=== PATIENT | female | born 1970 | race Two or more races ===

== ENCOUNTER 2020-04-05 19:09 | Emergency (ER) | payer OTHER ==
[~2020-04-05] VITALS: Ht 152.4 cm; Wt 68.3 kg
--- NOTE | 2020-04-05 19:36 | NUR ---
Pt bib ems from [facility] for increased swelling and increased urinary frequency. Pt reports she feels her legs are the most swollen, pt reports in the past years her swelling would resolve and improve but that has now not occured. Pt reports no chest pain but has pain with cough. Pt does not have fever or sob. Pt connected to monitors and ua sent to lab. call light in reach.
[2020-04-05 19:56] LABS: BASOPHILS # (AUTO) 0.02 x10^3/uL (0-0.1); BASOPHILS % (AUTO) 0 % (0-1); EOSINOPHILS # (AUTO) 0.01 x10^3/uL (0-0.4); EOSINOPHILS % (AUTO) 0 % (1-7); LYMPHOCYTES # (AUTO) 1.39 x10^3/uL (1-3.4); LYMPHOCYTES % (AUTO) 19 % (22-44); MD NO; MEAN CORPUSCULAR HEMOGLOBIN 32.1 pg (27.0-34.8); MEAN CORPUSCULAR HGB CONC 33.8 g/dL (32.4-35.8); MEAN CORPUSCULAR VOLUME 95.1 fL (80-100); MONOCYTES # (AUTO) 0.38 x10^3/uL (0.2-0.8); MONOCYTES % (AUTO) 5 % (2-9); NEUTROPHILS % (AUTO) 75 % (42-75); PLATELET COUNT 254 x10^3/uL (130-400); RED BLOOD COUNT 4.62 x10^6/uL (3.82-5.3)
[2020-04-05 20:06] LABS: ALBUMIN 4.4 g/dL (3.4-5.0); ANION GAP 5 mmol/L (5-15); CALCIUM 9.5 mg/dL (8.5-10.1); CHLORIDE 108 mmol/L (98-107)
[2020-04-05 20:11] LABS: CREATININE 0.81 mg/dL (0.55-1.02); TROPONIN I < 0.015 ng/mL (0.000-0.045)
[2020-04-05 20:35] LABS: MICROSCOPIC INDICATED
--- NOTE | 2020-04-05 20:35 | NUR ---
Report to Danna VILLA
--- NOTE | 2020-04-05 20:45 | NUR ---
REPORT RECEIVED AND CARE ASSUMED. PT RESTING COMFORTABLY. WARM BLANKET GIVEN. NO FURTHER NEEDS OR COMPLAINTS NOTED. CALL LIGHT IN REACH. AWAITING LAB TESTS.
[2020-04-05 22:02] VITALS: BP 140/59
== END 2020-04-05 22:05 | disposition home or self-care (01) ==
LOC: ED 21:29
DX: N30.00 Acute cystitis without hematuria (principal); R60.0 Localized edema; R10.9 Unspecified abdominal pain; R05 Cough; R07.89 Other chest pain; M54.9 Dorsalgia, unspecified; R94.31 Abnormal electrocardiogram [ECG] [EKG]
CPT/HCPCS: 36415; 71045; 80048; 81001; 82040; 83880; 84484; 85025; 87086; 93005; 99285

== ENCOUNTER 2020-04-13 09:28 | Emergency (ER) | payer OTHER ==
[~2020-04-13] VITALS: Ht 157.5 cm; Wt 73.8 kg
[2020-04-13 09:30] VITALS: BP 142/72
[2020-04-13 10:28] LABS: BASOPHILS # (AUTO) 0.01 x10^3/uL (0-0.1); BASOPHILS % (AUTO) 0 % (0-1); EOSINOPHILS # (AUTO) 0.08 x10^3/uL (0-0.4); EOSINOPHILS % (AUTO) 1 % (1-7); LYMPHOCYTES # (AUTO) 2.14 x10^3/uL (1-3.4); LYMPHOCYTES % (AUTO) 37 % (22-44); MD NO; MEAN CORPUSCULAR HEMOGLOBIN 32.6 pg (27.0-34.8); MEAN CORPUSCULAR VOLUME 95.9 fL (80-100); MEAN PLATELET VOLUME 8.7 fL (7.4-10.4); MONOCYTES % (AUTO) 7 % (2-9); NEUTROPHILS # (AUTO) 3.23 x10^3/uL (1.8-6.8); NEUTROPHILS % (AUTO) 55 % (42-75); PLATELET COUNT 242 x10^3/uL (130-400); RED CELL DISTRIBUTION WIDTH 12.9 % (9.6-15.2)
[2020-04-13 10:45] LABS: ALBUMIN 4.2 g/dL (3.4-5.0); ANION GAP 7 mmol/L (5-15); CALCIUM 9.3 mg/dL (8.5-10.1); CHLORIDE 110 mmol/L (98-107)
[2020-04-13 10:49] LABS: ALANINE AMINOTRANSFERASE 24 U/L (12-78); ALKALINE PHOSPHATASE 107 U/L (45-117); BILIRUBIN,TOTAL 1.8 mg/dL (0.2-1.0); CREATININE 0.86 mg/dL (0.55-1.02); TOTAL PROTEIN 7.8 g/dL (6.4-8.2)
[2020-04-13 11:50] LABS: MICROSCOPIC AUTO
== END 2020-04-13 13:20 | disposition home or self-care (01) ==
LOC: EDBD 09:28 → ED 10:53
DX: N30.00 Acute cystitis without hematuria (principal); R07.89 Other chest pain; R11.0 Nausea; R94.31 Abnormal electrocardiogram [ECG] [EKG]; R06.02 Shortness of breath; R53.83 Other fatigue
CPT/HCPCS: 36415; 71045; 80053; 81001; 83690; 85025; 87086; 93005; 99285

== ENCOUNTER 2020-07-26 14:35 | Emergency (ER) | payer OTHER ==
[~2020-07-26] VITALS: Ht 157.5 cm; Wt 70.4 kg
[2020-07-26 15:12] LABS: BASOPHILS # (AUTO) 0.01 x10^3/uL (0-0.1); BASOPHILS % (AUTO) 0 % (0-1); EOSINOPHILS # (AUTO) 0.05 x10^3/uL (0-0.4); EOSINOPHILS % (AUTO) 1 % (1-7); LYMPHOCYTES # (AUTO) 1.94 x10^3/uL (1-3.4); LYMPHOCYTES % (AUTO) 33 % (22-44); MD NO; MEAN CORPUSCULAR HEMOGLOBIN 32.8 pg (27.0-34.8); MEAN CORPUSCULAR HGB CONC 34.5 g/dL (32.4-35.8); MEAN CORPUSCULAR VOLUME 95.1 fL (80-100); MEAN PLATELET VOLUME 8.9 fL (7.4-10.4); MONOCYTES # (AUTO) 0.43 x10^3/uL (0.2-0.8); MONOCYTES % (AUTO) 7 % (2-9); NEUTROPHILS # (AUTO) 3.53 x10^3/uL (1.8-6.8); NEUTROPHILS % (AUTO) 59 % (42-75); PLATELET COUNT 220 x10^3/uL (130-400); RED BLOOD COUNT 4.41 x10^6/uL (3.82-5.3); RED CELL DISTRIBUTION WIDTH 12.4 % (9.6-15.2)
[2020-07-26 15:26] LABS: ALANINE AMINOTRANSFERASE 21 U/L (12-78); ALBUMIN 4.1 g/dL (3.4-5.0); ANION GAP 7 mmol/L (5-15); CALCIUM 9.1 mg/dL (8.5-10.1); CHLORIDE 110 mmol/L (98-107); CREATININE 0.66 mg/dL (0.55-1.02)
[2020-07-26 15:30] LABS: ALKALINE PHOSPHATASE 99 U/L (45-117); BILIRUBIN,TOTAL 1.4 mg/dL (0.2-1.0); TOTAL PROTEIN 7.7 g/dL (6.4-8.2); TROPONIN I < 0.015 ng/mL (0.000-0.045)
[2020-07-26 15:35] LABS: MICROSCOPIC INDICATED
[2020-07-26 16:28] VITALS: BP 120/60
== END 2020-07-26 17:47 | disposition home or self-care (01) ==
LOC: ED 15:27
DX: R10.13 Epigastric pain (principal); R11.0 Nausea; R07.9 Chest pain, unspecified
CPT/HCPCS: 36415; 71045; 76700; 80053; 81001; 83690; 84484; 85025; 87086; 93005; 99285

== ENCOUNTER 2020-10-01 16:09 | Emergency (ER) | payer OTHER ==
[~2020-10-01] VITALS: Ht 154.9 cm; Wt 69.0 kg
[2020-10-01 18:09] LABS: ALBUMIN 4.3 g/dL (3.4-5.0); ANION GAP 7 mmol/L (5-15); CALCIUM 9.3 mg/dL (8.5-10.1); CHLORIDE 108 mmol/L (98-107); CREATININE 0.71 mg/dL (0.55-1.02)
[2020-10-01 18:10] LABS: BASOPHILS % (AUTO) 0 % (0-1); EOSINOPHILS % (AUTO) 0 % (1-7); LYMPHOCYTES % (AUTO) 18 % (22-44); MEAN CORPUSCULAR HEMOGLOBIN 32.4 pg (27.0-34.8); MEAN CORPUSCULAR HGB CONC 33.5 g/dL (32.4-35.8); MEAN PLATELET VOLUME 9.1 fL (7.4-10.4); MONOCYTES % (AUTO) 6 % (2-9); NEUTROPHILS % (AUTO) 75 % (42-75); PLATELET COUNT 265 x10^3/uL (130-400); RED BLOOD COUNT 4.25 x10^6/uL (3.82-5.3); RED CELL DISTRIBUTION WIDTH 13.2 % (9.6-15.2)
[2020-10-01 18:12] LABS: MD NO
[2020-10-01 18:13] LABS: TROPONIN I < 0.015 ng/mL (0.000-0.045)
--- NOTE | 2020-10-01 18:14 | NUR ---
Pt pashto speaking only, states wanting a Covid swab. C/o neck and CP.
--- NOTE | 2020-10-01 18:43 | NUR ---
Pt resting, resp even/unlabored. No needs at this time. Updated on POC. VS updated.
--- NOTE | 2020-10-01 18:58 | NUR ---
Report to ALLEN Mitchell
[2020-10-01 19:44] VITALS: BP 115/63
--- NOTE | 2020-10-01 19:44 | NUR ---
jose r rn: used interpretor for [employer] #[id number]
== END 2020-10-01 20:03 | disposition home or self-care (01) ==
LOC: ED 19:50
DX: R06.00 Dyspnea, unspecified (principal); R53.1 Weakness; R06.02 Shortness of breath; R53.83 Other fatigue; R00.0 Tachycardia, unspecified
CPT/HCPCS: 36415; 71045; 80048; 82040; 83880; 84484; 85025; 93005; 99285

== ENCOUNTER 2021-03-09 16:21 | Emergency (ER) | payer OTHER ==
[~2021-03-09] VITALS: Ht 154.9 cm; Wt 63.4 kg
--- NOTE | 2021-03-09 16:33 | NUR ---
EKG IN TRIAGE.
--- NOTE | 2021-03-09 17:04 | NUR ---
BREAK RN: CONTACT WITH PT. 50 YR OLD FEMALE HERE WITH C/O "FOR OVER A YR, SHE HAS HAD SOME SYMPTOMS OF HER HEART RATE GOING UP AND DOWN. TODAY SHE WOKE UP FEELING SHAKY, WANTING VOMIT AND FEELING WEAK. HER PCP RECOMMEDED SHE COME TO THE ER AND BE EVALUATED."
[2021-03-09] MEDS ORDERED: MAALOX/HYOSCYAMINE/LIDOCAINE 45 ML BTL PO ONE (17:30)
--- NOTE | 2021-03-09 17:42 | NUR ---
REPORT TO DU VILLA
[2021-03-09] MEDS ORDERED: MAALOX/HYOSCYAMINE/LIDOCAINE 45 ML BTL ONE (17:46)
[2021-03-09 17:47] LABS: BASOPHILS % (AUTO) 0 % (0-1); EOSINOPHILS % (AUTO) 0 % (1-7); LYMPHOCYTES % (AUTO) 23 % (22-44); MEAN CORPUSCULAR HGB CONC 34.5 g/dL (32.4-35.8); MEAN PLATELET VOLUME 8.8 fL (7.4-10.4); MONOCYTES % (AUTO) 7 % (2-9); NEUTROPHILS % (AUTO) 70 % (42-75); PLATELET COUNT 252 x10^3/uL (130-400); RED BLOOD COUNT 4.29 x10^6/uL (3.82-5.3)
[2021-03-09 17:48] LABS: MD NO
--- NOTE | 2021-03-09 17:55 | NUR ---
PT GIVEN MEDS PER ERP ORDER. CLARIFICATION OF ALLERGIES, PT STATES ALLERGY TO ANTI-ANXIETY MED NOT MUSCLE RELAXER. CANNOT REMEMBER NAME OF MED BUT CONFIRMS IT IS NOT XANAX. PT'S ALLERGIC REACTION IS STATED FACIAL NUMBNESS THAT RESOLVED. PT CONSENTS TO TAKING XANAX AND ALLERGIES UPDATED IN COMPUTER.
[2021-03-09 18:03] LABS: ALBUMIN 4.1 g/dL (3.4-5.0); ANION GAP 5 mmol/L (5-15); CALCIUM 9.6 mg/dL (8.5-10.1); CHLORIDE 107 mmol/L (98-107)
[2021-03-09 18:16] LABS: ALANINE AMINOTRANSFERASE 22 U/L (12-78); ALKALINE PHOSPHATASE 94 U/L (45-117); BILIRUBIN,TOTAL 1.1 mg/dL (0.2-1.0); CREATININE 0.61 mg/dL (0.55-1.02); TOTAL PROTEIN 7.8 g/dL (6.4-8.2); TROPONIN I < 0.015 ng/mL (0.000-0.045)
--- NOTE | 2021-03-09 18:28 | NUR ---
PT STATES SHE'S FEELING BETTER. VSS, PT FOR RECHECK.
[2021-03-09 18:29] VITALS: BP 116/67
== END 2021-03-09 18:53 | disposition home or self-care (01) ==
LOC: ED 18:25
DX: R07.89 Other chest pain (principal); F41.1 Generalized anxiety disorder; R10.13 Epigastric pain; R00.2 Palpitations; R11.0 Nausea; R94.31 Abnormal electrocardiogram [ECG] [EKG]
CPT/HCPCS: 36415; 71045; 80053; 83690; 84443; 84484; 85025; 93005; 99285